=== PATIENT | female | born 1980 | race Caucasian/White ===

== ENCOUNTER 2017-11-10 14:03 | Emergency (ER) | payer BC, MEDICAID ==
[~2017-11-10] VITALS: Ht 160 cm; Wt 80.4 kg
[2017-11-10 14:17] VITALS: BP 135/62; PULSE 74; RESP 18; TEMP 98.4; O2SAT 98
[2017-11-10] MEDS ORDERED: KETOROLAC TROMETHAMINE 60 MG/2 ML (IM) VIAL IM ONE (15:45)
[2017-11-10] MEDS ORDERED: ROBA750T PO (15:47)
[2017-11-10] MEDS ORDERED: IBUP1TAB7 PO (15:47)
--- NOTE | 2017-11-10 15:47 | PD ---
HPI Chief Complaint: Pain: Acute or Chronic Time Seen by Provider: 15:00 Travel History International Travel<30 days: Yes Contact w/Intl Traveler<30days: Yes Name of Country Traveled to: [place] Traveled to known affect area: No History of Present Illness HPI 37-year-old female here with sciatica pain and 3 days. She reports the pain worsened after taking heavy luggage. She reports a history of sciatica. Similar symptoms in the past. Denies fever, incontinence, saddle anesthesia, paresthesia weakness of the extremities. No history of IV drug abuse. Symptoms are slightly improved with ibuprofen. Aggravated by movement. PFSH Past Medical History Diminished Hearing: No Integumentary: Yes (HYPER HYDROSIS) Tetanus Vaccination: < 5 Years Influenza Vaccination: Yes ?: Unknown LMP: OCTOBER 2013 Past Surgical History Hysterectomy: Yes Social History Alcohol Use: Yes (SOCIALLY) Tobacco Use: Yes (1/2 PPD) Substance Use: No Allergies-Medications (Allergen,Severity, Reaction): Coded Allergies: Penicillins (Verified Allergy, Severe, Anaphylaxis, 11/10/17) Review of Systems Except as stated in HPI: all other systems reviewed are Neg Physical Exam Narrative GENERAL: Alert well-appearing 37-year-old female SKIN: Warm and dry. HEAD: Normocephalic. EYES: No scleral icterus. No injection or drainage. NECK: Supple, trachea midline. No JVD or lymphadenopathy. CARDIOVASCULAR: Regular rate and rhythm without murmurs, gallops, or rubs. RESPIRATORY: Breath sounds equal bilaterally. No accessory muscle use. GASTROINTESTINAL: Abdomen soft, non-tender, nondistended. MUSCULOSKELETAL: No cyanosis, or edema. Normal strength and sensation in lower extremities. Ambulating without difficulty. BACK:+TTP over SI joints. Negative straight leg raise bilaterally. No midline spine tenderness. Without obvious deformity. No CVA tenderness. Data Data Last Documented VS Vital Signs Date Time Temp Pulse Resp B/P (MAP) Pulse Ox O2 Delivery O2 Flow Rate FiO2 11/10/17 14:17 98.4 74 18 135/62 (86) 98 Orders Orders Ketorolac Inj (Toradol Inj) (11/10/17 15:45) [facility] Medical Decision Making Medical Screen Exam Complete: Yes Emergency Medical Condition: Yes Differential Diagnosis Sciatica, lumbar strain, SI joint pain Narrative Course 37-year-old female here with back pain. She is nontoxic-appearing. She is a normal neurologic exam. She'll be treated with NSAIDs and muscle action. Diagnosis Primary Impression: Sciatica Qualified Codes: M54.31 - Sciatica, right side; M54.32 - Sciatica, left side Referrals: Primary Care Physician Additional Instructions: Medication as directed. Avoid heavy lifting or strenuous activity. Scripts Methocarbamol (Robaxin) 750 Mg Tab 750 MG PO QID for Muscle Spasm, #12 TAB 0 Refills Prov: Fani Etienne 11/10/17 Ibuprofen (Ibuprofen) 800 Mg Tab 800 MG PO Q6HR Y for PAIN, #40 TAB 0 Refills Prov: Fani Etienne 11/10/17 Disposition: 01 DISCHARGE HOME Condition: Stable Fani Etienne Nov 10, 2017 15:47
== END 2017-11-10 15:58 | disposition home or self-care (01) ==
LOC: PHEFT 14:03
DX: M54.31 Sciatica, right side (principal); M54.32 Sciatica, left side; F17.200 Nicotine dependence, unspecified, uncomplicated
CPT/HCPCS: 96372; 99283; J1885